=== PATIENT | male | born 1980 | race Caucasian/White ===

== ENCOUNTER 2017-01-10 17:46 | Emergency (ER) | payer OTHER ==
[~2017-01-10] VITALS: Ht 182.9 cm; Wt 81.6 kg
[~2017-01-10 17:46] MED LIST: CELE20TA OR; TRAZ50TA OR
[2017-01-10 17:47] VITALS: BP 136/84
[2017-01-10] MEDS ORDERED: AUGM875T27 PO (18:32)
== END 2017-01-10 18:51 | disposition home or self-care (01) ==
LOC: M ED 18:45
DX: S81.851A Open bite, right lower leg, initial encounter (principal); W54.0XXA Bitten by dog, initial encounter; Y92.89 Other specified places as the place of occurrence of the external cause; Y93.89 Activity, other specified; Y99.0 Civilian activity done for income or pay; Z88.2 Allergy status to sulfonamides

== ENCOUNTER 2019-08-18 14:37 | Emergency (ER) | payer OTHER ==
[~2019-08-18] VITALS: Ht 182.9 cm; Wt 84.1 kg
[~2019-08-18 14:37] MED LIST changes: +AUGM875T28 PO
[2019-08-18 14:38] VITALS: BP 138/89
[2019-08-18] MEDS ORDERED: ADVI100T PO (15:10)
[2019-08-18 15:41] LABS: BASO # 0.1 10^3/uL (0.0-0.2); BASO % 0.8 % (0.0-1.0); EOS # 0.4 10^3/uL (0.0-0.5); EOS % 5.7 % (0.0-3.0); HEMATOCRIT 37.8 % (42.0-52.0); HEMOGLOBIN 12.9 g/dl (13.5-17.5); LYMPH # 2.7 10^3/uL (1.5-5.0); LYMPH % 35.3 % (24.0-44.0); MEAN CORPUSCULAR HEMOGLOBIN 35.3 pg (27.0-33.0); MEAN CORPUSCULAR HGB CONC 34.1 g/dl (32.0-36.5); MEAN CORPUSCULAR VOLUME 103.6 fl (80.0-96.0); MONO # 0.9 10^3/uL (0.0-0.8); NEUTROPHILS # 3.5 10^3/uL (1.5-8.5); NEUTROPHILS % 46.1 % (36.0-66.0); PLATELET COUNT, AUTOMATED 242 10^3/uL (150-450); RED BLOOD COUNT 3.65 10^6/uL (4.30-6.10); WHITE BLOOD COUNT 7.6 10^3/uL (4.0-10.0)
[2019-08-18 16:00] LABS: ERYTHROCYTE SEDIMENTATION RATE 16 mm/hr (0-15)
--- NOTE | 2019-08-18 16:03 | REP ---
Left knee series: Four views. History: Pain and swelling. No known injury. Findings: Four views of the left knee demonstrate normal bones and joints. The patient apparently was unable to be positioned for sunrise view. There is minimal spurring at the superior pole the patella. Impression: Minimal patellar spurring. No acute bony abnormality. No sunrise view. Electronically Signed by Donny Gallagher MD 08/18/2019 05:00 P
== END 2019-08-18 16:56 | disposition home or self-care (01) ==
LOC: M ED 14:37
DX: M17.12 Unilateral primary osteoarthritis, left knee (principal); Z86.2 Personal history of diseases of the blood and blood-forming organs and certain disorders involving the immune mechanism; Z88.2 Allergy status to sulfonamides; Z72.0 Tobacco use

== ENCOUNTER → 2021-11-14 | Outpatient (CLI) | payer OTHER ==
[~2021-11-14] MED LIST changes: +ADVI100T PO
== END ==
LOC: M WUC 14:26
PROVIDERS: ATTEND Physician Assistant
DX: M79.672 Pain in left foot (principal)

== ENCOUNTER → 2023-01-14 | Outpatient (CLI) | payer OTHER | LOC: M WUC 15:52 | PROVIDERS: ATTEND Nurse Practitioner Family | DX: M25.562 Pain in left knee (principal) ==

== ENCOUNTER → 2025-08-12 | Outpatient (CLI) | payer OTHER | LOC: M RAD 17:30 | PROVIDERS: ATTEND Internal Medicine | DX: M79.641 Pain in right hand (principal); M25.531 Pain in right wrist; M19.031 Primary osteoarthritis, right wrist ==